=== PATIENT | female | born 1955 | race Caucasian/White ===

== ENCOUNTER 2017-06-23 19:01 | Emergency (ER) | payer OTHER ==
[~2017-06-23] VITALS: Ht 157.5 cm; Wt 109.5 kg
[~2017-06-23 19:01] MED LIST: ASPEC81 PO; CHOL100010 PO; LPT/40 PO; OMEP20CA59 PO; OMEP40CA PO; VENL150C PO; ZOLE5INJ IV
[2017-06-23 19:12] VITALS: TEMP 36.8; Ht 157.5 cm; Wt 109.5 kg
[2017-06-23] MEDS ORDERED: ONDANSETRON INJ 2 MG/ML 2 ML VIAL IV STA (19:48)
[2017-06-23] MEDS ORDERED: SODIUM CHLORIDE 0.9% 500ML 500 ML IV STA (19:48)
[2017-06-23] MEDS ORDERED: OPTIRAY 320 IV PRN (20:00)
[2017-06-23] MEDS ORDERED: CHOL1TAB42 PO (20:09)
[2017-06-23] MEDS ORDERED: CELE1CAP30 PO (20:09)
[2017-06-23] MEDS ORDERED: EFFSR75 PO (20:09)
[2017-06-23] MEDS ORDERED: ASPI81TA21 PO (20:10)
[2017-06-23 20:18] LABS: BASO % 0.1 %; BASO ABS # 0.01 K/uL (0-0.2); COMPLETE YES; EOS % 0.4 %; HEMATOCRIT 40.1 % (37-47); IG% 0.4 %; LYMPH % 28.5 %; LYMPH ABS # 2.04 K/uL (1.2-3.4); MEAN CELL VOLUME 95.5 fL (80-100); MEAN CORPUSCULAR HEMOGLOBIN 31.4 pg (25-34); MEAN CORPUSCULAR HGB CONC 32.9 g/dl (32-36); MEAN PLATELET VOLUME 9.6 fL (7.4-10.4); MONO % 7.8 %; NEUT % 62.8 %; PLATELET COUNT 231 K/uL (130-400); WHITE BLOOD COUNT 7.15 K/uL (4.8-10.8)
[2017-06-23 20:45] LABS: ALKALINE PHOSPHATASE 105 U/L (45-117); ALT/SGPT 36 U/L (12-78); AST/SGOT 32 U/L (15-37); BLOOD UREA NITROGEN 14 mg/dl (7-18); BUN/CREATININE RATIO 14.4 (10-20); CALCIUM 8.8 mg/dl (8.5-10.1); CARBON DIOXIDE 30 mmol/L (21-32); CHLORIDE 106 mmol/L (98-107); CREATININE 0.95 mg/dl (0.60-1.20); GLUCOSE 87 mg/dl (70-99); POTASSIUM 4.4 mmol/L (3.5-5.1); SODIUM 139 mmol/L (136-145)
[2017-06-23 21:09] LABS: URINE APPEARANCE CLEAR (CLEAR); URINE BILIRUBIN NEG (NEG); URINE COLOR YELLOW; URINE EPITHELIAL CELL AUTO 0-5 /lpf (0-5); URINE NITRITE NEG (NEG); URINE PH 6.5 (4.5-7.5); URINE SPECIFIC GRAVITY 1.012 (1.000-1.030); UROBILINOGEN NEG (NEG); ZZUR CULT IF INDIC CLEAN CATCH NO
[2017-06-23 21:17] LABS: MANUAL MICROSCOPIC REQUIRED? NO; REVIEW REQ? NO
--- NOTE | 2017-06-23 22:00 | DIAGNOSTIC IMAGING REPORT ---
CT SCAN OF THE ABDOMEN AND PELVIS WITH IV CONTRAST CLINICAL HISTORY: Left-sided abdominal pain. COMPARISON STUDY: Abdominal CT dated 11/08/2014 and 12/15/2012. TECHNIQUE: Following the IV administration of 93 cc of Optiray 320, CT scan of the abdomen and pelvis is performed from the lung bases to the proximal femora. Images are reviewed in the axial, sagittal, and coronal planes. IV contrast was administered without complication. A dose lowering technique was utilized adhering to the principles of ALARA. CT DOSE: 3249.30 mGy.cm FINDINGS: Lung bases: The heart is normal in size and without pericardial effusion. 5 mm and 6 cm nodules are identified in the lingula on images #32 and #37. These are of doubtful significance and have been present dating back to 2012. The lung bases are otherwise clear. There is a small hiatal hernia. Liver: The contrast-enhanced liver is mildly enlarged measuring 18.3 cm in length. The liver demonstrates diffusely diminished attenuation consistent with hepatic steatosis. There is minimal central intrahepatic biliary ductal dilatation. The hepatic veins and portal veins are patent. Gallbladder: Surgically absent noting clips in the gallbladder fossa. Spleen: Normal in size and attenuation. Pancreas: Unremarkable. Adrenal glands: Unremarkable. Kidneys: The contrast enhanced kidneys demonstrate mild cortical atrophy and are without hydronephrosis. The kidneys enhance symmetrically. Abdominal vasculature: The abdominal aorta is normal in course and caliber noting mild atherosclerotic calcification. Bowel: Findings suggest previous sigmoid colon resection with colocolonic anastomosis. No bowel obstruction is seen. There is mild to moderate diverticulosis of the left colon without CT evidence of acute diverticulitis. The appendix is well-visualized and normal. Peritoneum: There is no intraperitoneal free air or abdominal ascites. Lymphadenopathy: None. Pelvic viscera: The bladder is normal as visualized. The uterus is surgically absent. No adnexal lesion is seen. Skeletal structures: The skeletal structures are osteopenic. There is a mild chronic compression deformity of T12. No lytic or blastic lesions are seen. There are healed left-sided rib fractures. IMPRESSION: 1. There are no acute infectious or inflammatory findings in the abdomen or pelvis. 2. Findings suggest previous sigmoid colon resection with colocolonic anastomosis. There is no bowel obstruction. 3. There is mild to moderate diverticulosis of the remaining left colon without CT evidence of acute diverticulitis. 4. Hepatomegaly and hepatic steatosis. 5. Additional findings as above. Electronically signed by: Donny Shin M.D. 06/23/2017 9:58 PM Dictated Date/Time: 06/23/2017 9:50 PM
--- NOTE | 2017-06-23 22:08 | DIAGNOSTIC IMAGING REPORT ---
CT SCAN OF THE LUMBAR SPINE WITHOUT IV CONTRAST CLINICAL HISTORY: Low back pain. COMPARISON STUDY: CT scan of the lumbar spine dated 11/08/2014. TECHNIQUE: CT scan of the lumbar spine is performed from the lower thoracic spine to the sacrum. Images reviewed in the axial, sagittal, and coronal planes. IV contrast was not administered for this examination. A dose lowering technique was utilized adhering to the principles of ALARA. FINDINGS: The skeletal structures are osteopenic. There is no evidence of acute fracture or malalignment involving the lumbar spine. A mild chronic compression deformity of T12 is unchanged from 2015. Vertebral body height and alignment are maintained throughout the lumbar spine. The transverse and spinous processes appear intact. There is no evidence of spondylolysis. Mild hyperlordosis is observed. No lytic or blastic lesion is seen. No significant neural foraminal stenosis is identified throughout the lumbar spine. The intervertebral disc spaces are preserved. A small posterior disc bulge is noted at L5-S1. There is no evidence of large disc herniation or significant acquired compromise of the central canal. The visualized sacrum and bony pelvis appear intact. Mild degenerative change and vacuum phenomenon are noted in the sacroiliac joints. The paraspinous soft tissues are within normal limits. The abdominal aorta is normal in caliber noting mild atherosclerotic calcification. Colonic diverticulosis is partially imaged. IMPRESSION: 1. There is no acute bony abnormality seen involving the lumbar spine. 2. A mild chronic compression deformity of T12 is unchanged from 2014. 3. Osteopenia and minimal degenerative change as above. Dictated: 06/23/2017 9:46 PM Transcribed: 06/23/2017 10:08 PM Deo Electronically signed by: Donny Shin M.D. 06/23/2017 10:17 PM Dictated Date/Time: 06/23/2017 9:46 PM
[2017-06-23 22:54] VITALS: BP 143/79; PULSE 77; O2SAT 97
--- NOTE | 2017-06-24 00:18 | EMERGENCY ROOM VISIT NOTE ---
History Report prepared by Henri: Antonio Potter Under the Supervision of: Dr. Jah Cao D.O. First contact with patient: 19:15 Chief Complaint: FLANK PAIN Stated Complaint: ABDOMINAL PAIN History of Present Illness The patient is a 62 year old female who presents to the Emergency Room with complaints of worsening left flank pain beginning a week ago. The patient reports she went to bend over and heard a crack in her back. She notes her discomfort has been there since and nothing makes it feel better or worse. The patient states she also had part of her bowel removed 18 years ago, and she has had discomfort since. She reports over the past week, it has been worsening though. The patient notes she thought it would go away, but it did not. She states she is also experiencing lower back pain that radiates to her hip. The patient reports she has a history of degenerative disk disease, arthritis, and osteoporosis in her back. She notes she is able to pass gas and go to the restroom. The patient denies pain with urination, blood with urination, numbness to groin, and numbness to legs. She states she has a history of a hysterectomy, appendectomy, and cholecystectomy. Source of History: patient Onset: week ago Position: other (Left flank) Timing: worsening Associated Symptoms: + back pain (lower back pain that radiates to the hip) , No urinary symptoms, No numbness Review of Systems See HPI for pertinent positives & negatives. A total of 10 systems reviewed and were otherwise negative. Past Medical & Surgical Medical Problems: (1) Coronary artery disease (2) Depression (3) Diverticulosis (4) Dyslipidemia (5) Epileptic seizure (6) Gastroesophageal reflux disease (7) Gastroparesis (8) Non-alcoholic fatty liver (9) Osteoporosis (10) Pulmonary nodules (11) Renal mass (12) Vitamin D deficiency Surgical Problems: (1) H/O oophorectomy (2) H/O umbilical hernia repair (3) Hx of cholecystectomy (4) s/p partial colectomy (5) s/p ELADIO (6) s/p tubal ligation Family History No pertinent family history Social History Smoking Status: Never Smoker Alcohol Use: occasionally Housing Status: lives with family Occupation Status: employed Current/Historical Medications Scheduled Aspirin Enteric Coated (Ecotrin Or Generic), 81 MG PO DAILY Atorvastatin (Lipitor), 40 MG PO DAILY Celecoxib (Celecoxib), 200 MG PO DAILY Cholecalciferol (Vitamin D), 1 TAB PO WK Omeprazole (Prilosec), 20 MG PO BID Venlafaxine Hcl (Effexor Extended Rel), 3 CAP PO DAILY Zoledronic Acid (Reclast), 1 DOSE IV UD Allergies Coded Allergies: Sulfa Drugs (Unverified Allergy, Severe, RASH, 12/14/12) Physical Exam Vital Signs Date Time Temp Pulse Resp B/P (MAP) Pulse Ox O2 Delivery O2 Flow Rate FiO2 06/23/17 22:54 77 16 143/79 97 06/23/17 21:41 81 16 143/79 99 Room Air 06/23/17 19:47 81 18 146/87 95 Room Air 06/23/17 19:12 36.8 85 20 163/98 97 Room Air Physical Exam GENERAL:Sitting up in bed, holding left upper quadrant, no distress, non-toxic EYE EXAM: normal conjunctiva, PERRL and EOM's grossly intact OROPHARYNX: no exudate, no erythema, lips, buccal mucosa, and tongue normal and mucous membranes are moist NECK: supple, no nuchal rigidity, no adenopathy, non-tender LUNGS: Clear to auscultation. Normal chest wall mechanics HEART: no murmurs, S1 normal and S2 normal ABDOMEN: abdomen soft, non-tender, normo-active bowel sounds, no masses, no rebound or guarding. BACK: Back is symmetrical on inspection and there is no deformity, minimal tenderness to the S1 joint tracking to right gluteus. SKIN: no rashes and no bruising UPPER EXTREMITIES: upper extremities are grossly normal. LOWER EXTREMITIES: No pitting edema. Legs: Flexion extension of the hip, knee, ankle, and EHL 5/5, gross sensation intact. NEURO EXAM: Normal sensorium, cranial nerves II-XII grossly intact, normal speech, no gross weakness of arms, no gross weakness of legs. Medical Decision & Procedures ER Provider Diagnostic Interpretation: CT:Per my review, radiologist interpretation. CT SCAN OF THE LUMBAR SPINE WITHOUT IV CONTRAST CLINICAL HISTORY: Low back pain. COMPARISON STUDY: CT scan of the lumbar spine dated 11/08/2014. TECHNIQUE: CT scan of the lumbar spine is performed from the lower thoracic spine to the sacrum. Images reviewed in the axial, sagittal, and coronal planes. IV contrast was not administered for this examination. A dose lowering technique was utilized adhering to the principles of ALARA. FINDINGS: The skeletal structures are osteopenic. There is no evidence of acute fracture or malalignment involving the lumbar spine. A mild chronic compression deformity of T12 is unchanged from 2015. Vertebral body height and alignment are maintained throughout the lumbar spine. The transverse and spinous processes appear intact. There is no evidence of spondylolysis. Mild hyperlordosis is observed. No lytic or blastic lesion is seen. No significant neural foraminal stenosis is identified throughout the lumbar spine. The intervertebral disc spaces are preserved. A small posterior disc bulge is noted at L5-S1. There is no evidence of large disc herniation or significant acquired compromise of the central canal. The visualized sacrum and bony pelvis appear intact. Mild degenerative change and vacuum phenomenon are noted in the sacroiliac joints. The paraspinous soft tissues are within normal limits. The abdominal aorta is normal in caliber noting mild atherosclerotic calcification. Colonic diverticulosis is partially imaged. IMPRESSION: 1. There is no acute bony abnormality seen involving the lumbar spine. 2. A mild chronic compression deformity of T12 is unchanged from 2014. 3. Osteopenia and minimal degenerative change as above. Dictated: 06/23/2017 9:46 PM Transcribed: 06/23/2017 10:08 PM REMIGIO_Hilaria Electronically signed by: Donny Shin M.D. 06/23/2017 10:17 PM Dictated Date/Time: 06/23/2017 9:[address] SCAN OF THE ABDOMEN AND PELVIS WITH IV CONTRAST CLINICAL HISTORY: Left-sided abdominal pain. COMPARISON STUDY: Abdominal CT dated 11/08/2014 and 12/15/2012. TECHNIQUE: Following the IV administration of 93 cc of Optiray 320, CT scan of the abdomen and pelvis is performed from the lung bases to the proximal femora. Images are reviewed in the axial, sagittal, and coronal planes. IV contrast was administered without complication. A dose lowering technique was utilized adhering to the principles of ALARA. CT DOSE: 3249.30 mGy.cm FINDINGS: Lung bases: The heart is normal in size and without pericardial effusion. 5 mm and 6 cm nodules are identified in the lingula on images #32 and #37. These are of doubtful significance and have been present dating back to 2012. The lung bases are otherwise clear. There is a small hiatal hernia. Liver: The contrast-enhanced liver is mildly enlarged measuring 18.3 cm in length. The liver demonstrates diffusely diminished attenuation consistent with hepatic steatosis. There is minimal central intrahepatic biliary ductal dilatation. The hepatic veins and portal veins are patent. Gallbladder: Surgically absent noting clips in the gallbladder fossa. Spleen: Normal in size and attenuation. Pancreas: Unremarkable. Adrenal glands: Unremarkable. Kidneys: The contrast enhanced kidneys demonstrate mild cortical atrophy and are without hydronephrosis. The kidneys enhance symmetrically. Abdominal vasculature: The abdominal aorta is normal in course and caliber noting mild atherosclerotic calcification. Bowel: Findings suggest previous sigmoid colon resection with colocolonic anastomosis. No bowel obstruction is seen. There is mild to moderate diverticulosis of the left colon without CT evidence of acute diverticulitis. The appendix is well-visualized and normal. Peritoneum: There is no intraperitoneal free air or abdominal ascites. Lymphadenopathy: None. Pelvic viscera: The bladder is normal as visualized. The uterus is surgically absent. No adnexal lesion is seen. Skeletal structures: The skeletal structures are osteopenic. There is a mild chronic compression deformity of T12. No lytic or blastic lesions are seen. There are healed left-sided rib fractures. IMPRESSION: 1. There are no acute infectious or inflammatory findings in the abdomen or pelvis. 2. Findings suggest previous sigmoid colon resection with colocolonic anastomosis. There is no bowel obstruction. 3. There is mild to moderate diverticulosis of the remaining left colon without CT evidence of acute diverticulitis. 4. Hepatomegaly and hepatic steatosis. 5. Additional findings as above. Electronically signed by: Donny Shin M.D. 06/23/2017 9:58 PM Dictated Date/Time: 06/23/2017 9:50 PM Laboratory Results 06/23/17 20:08 Red Blood Count 4.20, Mean Corpuscular Volume 95.5, Mean Corpuscular Hemoglobin 31.4, Mean Corpuscular Hemoglobin Concent 32.9, Mean Platelet Volume 9.6, Neutrophils (%) (Auto) 62.8, Lymphocytes (%) (Auto) 28.5, Monocytes (%) (Auto) 7.8, Eosinophils (%) (Auto) 0.4, Basophils (%) (Auto) 0.1, Neutrophils # (Auto) 4.48, Lymphocytes # (Auto) 2.04, Monocytes # (Auto) 0.56, Eosinophils # (Auto) 0.03, Basophils # (Auto) 0.01 06/23/17 20:08 Test 06/23/17 20:08 06/23/17 20:50 White Blood Count 7.15 K/uL (4.8-10.8) Red Blood Count 4.20 M/uL (4.2-5.4) Hemoglobin 13.2 g/dL (12.0-16.0) Hematocrit 40.1 % (37-47) Mean Corpuscular Volume 95.5 fL (80-100) Mean Corpuscular Hemoglobin 31.4 pg (25-34) Mean Corpuscular Hemoglobin Concent 32.9 g/dl (32-36) Platelet Count 231 K/uL (130-400) Mean Platelet Volume 9.6 fL (7.4-10.4) Neutrophils (%) (Auto) 62.8 % Lymphocytes (%) (Auto) 28.5 % Monocytes (%) (Auto) 7.8 % Eosinophils (%) (Auto) 0.4 % Basophils (%) (Auto) 0.1 % Neutrophils # (Auto) 4.48 K/uL (1.4-6.5) Lymphocytes # (Auto) 2.04 K/uL (1.2-3.4) Monocytes # (Auto) 0.56 K/uL (0.11-0.59) Eosinophils # (Auto) 0.03 K/uL (0-0.5) Basophils # (Auto) 0.01 K/uL (0-0.2) RDW Standard Deviation 43.2 fL (36.4-46.3) RDW Coefficient of Variation 12.4 % (11.5-14.5) Immature Granulocyte % (Auto) 0.4 % Immature Granulocyte # (Auto) 0.03 K/uL (0.00-0.02) Anion Gap 3.0 mmol/L (3-11) Est Creatinine Clear Calc Drug Dose 71.6 ml/min Estimated GFR () 74.4 Estimated GFR (Non- 64.2 BUN/Creatinine Ratio 14.4 (10-20) Calcium Level 8.8 mg/dl (8.5-10.1) Total Bilirubin 0.5 mg/dl (0.2-1) Direct Bilirubin mg/dl (0-0.2) Aspartate Amino Transf (AST/SGOT) 32 U/L (15-37) Alanine Aminotransferase (ALT/SGPT) 36 U/L (12-78) Alkaline Phosphatase 105 U/L (45-117) Total Protein 7.4 gm/dl (6.4-8.2) Albumin 3.7 gm/dl (3.4-5.0) Lipase 193 U/L (73-393) Urine Color YELLOW Urine Appearance CLEAR (CLEAR) Urine pH 6.5 (4.5-7.5) Urine Specific [place] 1.012 (1.000-1.030) Urine Protein NEG (NEG) Urine Glucose (UA) NEG (NEG) Urine Ketones NEG (NEG) Urine Occult Blood NEG (NEG) Urine Nitrite NEG (NEG) Urine Bilirubin NEG (NEG) Urine Urobilinogen NEG (NEG) Urine Leukocyte Esterase NEG (NEG) Urine WBC (Auto) 1-5 /hpf (0-5) Urine RBC (Auto) 0-4 /hpf (0-4) Urine Hyaline Casts (Auto) 0 /lpf (0-5) Urine Epithelial Cells (Auto) 0-5 /lpf (0-5) Urine Bacteria (Auto) NEG (NEG) Laboratory results per my review. Medications Administered Medications (Trade) Dose Ordered Sig/Cole Route Start Time Stop Time Status Last Admin Dose Admin Sodium Chloride 500 ml @ 999 mls/hr Q31M STAT IV 06/23/17 19:48 06/23/17 20:18 DC 06/23/17 20:28 999 MLS/HR Ondansetron HCl (Zofran Inj) 4 mg NOW STAT IV 06/23/17 19:48 06/23/17 19:50 DC 06/23/17 20:28 4 MG ED Course ED COURSE: Vital signs were reviewed and showed hypertension. The patients medical record was reviewed The above diagnostic studies were performed and reviewed. ED treatments and interventions as stated above. 1925: The patient was evaluated in room C08. A complete history and physical examination was performed. 1947: Ordered Ondansetron HCl 4mg IV, Sodium Chloride 500 ml @ 999 mls/hr IV 2221: Upon reevaluation, the patient is resting comfortably. I discussed my findings with the patient and she understands and agrees with the treatment plan. Based on the patients age, coexisting illnesses, exam and lab findings the decision to treat as an outpatient was made. The patient remained stable while under my care. The patient appeared well at the time of discharge. Medical Decision Differential diagnoses includes but is not limited to gastritis, peptic ulcer disease, GERD, gallbladder disease, pancreatitis, small bowel obstruction, acute coronary syndrome, pericarditis, ischemic bowel, irritable bowel disease, irritable bowel syndrome, appendicitis, diverticulitis, malignancy, hernia, urinary tract infection, torsion, /ectopic (if female), perforation, trauma, infectious. Patient is a 62-year-old female that presents to ER for left flank pain which is been present since 1998 and worsening over the past 2 weeks. She also complains of right lower back pain which is radiating down the right leg which is worsening over the past week. No weakness or numbness in arms or legs. No saddle paresthesias. History of cholecystectomy, appendectomy and complete hysterectomy. Normal bowel movement in past 24 hours. Abdominal exam is benign. Completely neurologically intact. Able to ambulate without difficulty. No signs cauda equina. Vitals are unremarkable. CBC all BMP, LFTs , bilirubin and lipase is negative. UA clean. CT abdomen and pelvis and lumbar spine show no acute pathology. Patient was updated at bedside. She was discharged follow-up with PCP as I favor this is likely musculoskeletal pain. Discussed with Pt concerning signs and symptoms to watch out for. Pt was instructed to follow up with their PCP and discussed with the patient their option to return to the ED at anytime for persistent or worsening symptoms. The appropriate anticipatory guidance and out-patient management, including indications for return to the emergency department, were explained at length to the patient and understood. Medication Reconcilliation Current Medication List: was personally reviewed by me Blood Pressure Screening Patient's blood pressure: Elevated blood pressure Blood pressure disposition: Referred to PCP Impression Primary Impression: Abdominal pain Scribe Attestation The scribe's documentation has been prepared under my direction and personally reviewed by me in its entirety. I confirm that the note above accurately reflects all work, treatment, procedures, and medical decision making performed by me. Departure Information Dispostion Home / Self-Care Referrals Carin Granda MD (PCP) Forms HOME CARE DOCUMENTATION FORM, IMPORTANT VISIT INFORMATION Patient Instructions Abdominal Pain - [facility], [facility] Additional Instructions Please follow up with your primary care doctor with in the next 24 hours. Any worsening of your symptoms, please return to the ED immediately. This includes any fevers greater than 100.4, worsening pain, chest pain, shortness breath, persistent nausea, vomiting, unable to eat or drink, unable to walk, tingling or numbness in legs, or any other concerning signs or symptoms from your standpoint. Please take Tylenol or Motrin as needed for pain. Problem Qualifiers Primary Impression: Abdominal pain Abdominal location: unspecified location Qualified Codes: R10.9 - Unspecified abdominal pain
== END 2017-06-23 22:55 | disposition home or self-care (01) ==
LOC: C.EDB 19:03 → C.EDC 22:55
DX: R10.9 Unspecified abdominal pain (principal); I25.10 Atherosclerotic heart disease of native coronary artery without angina pectoris; F32.9 Major depressive disorder, single episode, unspecified; E78.5 Hyperlipidemia, unspecified; R56.9 Unspecified convulsions; K21.9 Gastro-esophageal reflux disease without esophagitis; R91.1 Solitary pulmonary nodule; E55.9 Vitamin D deficiency, unspecified; Z79.82 Long term (current) use of aspirin

== ENCOUNTER → 2017-10-25 | Outpatient (CLI) | payer OTHER ==
[~2017-10-25] MED LIST changes: -ASPEC81 PO; +ASPI81TA21 PO; +CELE1CAP30 PO; -CHOL100010 PO; +CHOL1TAB42 PO; +EFFSR75 PO; -OMEP40CA PO; -VENL150C PO
[2017-10-25 12:27] LABS: ALBUMIN 3.6 gm/dl (3.4-5.0); ALKALINE PHOSPHATASE 104 U/L (45-117); ALT/SGPT 39 U/L (12-78); AST/SGOT 29 U/L (15-37); BLOOD UREA NITROGEN 16 mg/dl (7-18); CALCIUM 9.3 mg/dl (8.5-10.1); CARBON DIOXIDE 24 mmol/L (21-32); CHOLESTEROL 147 mg/dl (0-200); CREATININE 0.98 mg/dl (0.60-1.20); GLUCOSE 114 mg/dl (70-99); LDL CHOLESTEROL CALCULATED 71 mg/dl; POTASSIUM 4.2 mmol/L (3.5-5.1); SODIUM 137 mmol/L (136-145); TOTAL PROTEIN 7.2 gm/dl (6.4-8.2)
[2017-10-25 12:36] LABS: HEMOGLOBIN A1C 5.6 % (4.5-5.6)
== END | disposition home or self-care (01) ==
LOC: C.LABPBG 09:35
PROVIDERS: ATTEND Family Medicine
DX: Z00.00 Encounter for general adult medical examination without abnormal findings (principal); R53.83 Other fatigue; E78.00 Pure hypercholesterolemia, unspecified; I25.10 Atherosclerotic heart disease of native coronary artery without angina pectoris